=== PATIENT | female | born 1970 | race Caucasian/White ===

== ENCOUNTER 2018-01-04 10:42 | Emergency (ER) | payer OTHER ==
[2018-01-04 11:22] LABS: RAPID GROUP A STREP NEGATIVE (NEGATIVE)
== END 2018-01-04 11:51 | disposition home or self-care (01) ==
LOC: EDH 10:42
DX: J10.1 Influenza due to other identified influenza virus with other respiratory manifestations (principal)
CPT/HCPCS: 87804; 87880

== ENCOUNTER 2018-02-19 20:35 | Emergency (ER) | payer OTHER ==
[2018-02-19 21:11] LABS: APPEARANCE,URINE Clear (CLEAR); BILIRUBIN,URINE Negative (NEGATIVE); COLOR,URINE Yellow (YELLOW); GLUCOSE, URINE (UA) Negative (NEGATIVE); KETONES,URINE Negative (NEGATIVE); LEUKOCYTE ESTERASE ,URINE Negative (NEGATIVE); NITRATE,URINE Negative (NEGATIVE); OCCULT BLOOD,URINE Negative (NEGATIVE); PROTEIN,URINE Negative (NEGATIVE); UROBILINOGEN,URINE 0.2 mg/dL (0.2-1.0)
[2018-02-19 21:53] LABS: BASOPHILS % (AUTO) 0.9 % (0.0-5.0); EOSINOPHILS % (AUTO) 2.2 % (0.0-8.0); LYMPHOCYTES % (AUTO) 23.3 % (21.0-51.0); MEAN CORPUSCULAR HEMOGLOBIN 34.3 pg (27.0-33.0); MEAN CORPUSCULAR HGB CONC 35.9 g/dL (32.0-36.0); MEAN CORPUSCULAR VOLUME 95.4 fL (79-99); MONOCYTES % (AUTO) 8.1 % (3.0-13.0); NEUTROPHILS % (AUTO) 65.5 % (40.0-77.0); PLATELET COUNT (AUTO) 215 K/uL (130-400); RED BLOOD CELL COUNT(AUTO) 3.98 MIL/uL (4.00-5.50); RED CELL DISTRIBUTION WIDTH 13.2 % (11.0-15.5); WHITE BLOOD COUNT (AUTO) 8.8 K/uL (4.8-10.8)
[2018-02-19 22:02] LABS: CREATININE 0.8 mg/dL (0.5-1.5); POTASSIUM 4.1 mmol/L (3.5-5.1)
[2018-02-19 22:09] LABS: ALBUMIN 3.5 g/dL (3.5-5.0); BILIRUBIN,TOTAL 0.2 mg/dL (0.2-1.0); TOTAL PROTEIN, SERUM 7.3 g/dL (6.0-8.3)
== END 2018-02-19 23:05 | disposition left against medical advice (07) ==
LOC: EDH 20:35
DX: R10.32 Left lower quadrant pain (principal); Z72.0 Tobacco use
CPT/HCPCS: 36415; 80053; 81003; 81025; 82150; 83690; 85025; 93005

== ENCOUNTER 2019-01-06 12:56 | Emergency (ER) | payer OTHER ==
[2019-01-06] MEDS ORDERED: CYCLOBENZAPRINE HCL 10 MG TABLET ONE (13:31)
[2019-01-06] MEDS ORDERED: DIAZEPAM 5 MG TABLET ONE (13:32)
[2019-01-06] MEDS ORDERED: KETOROLAC TROMETHAMINE 60 MG/2 ML VIAL ONE (13:43)
[2019-01-06 13:57] LABS: APPEARANCE,URINE CLEAR (CLEAR); BILIRUBIN,URINE NEGATIVE (NEGATIVE); COLOR,URINE YELLOW (YELLOW); GLUCOSE, URINE (UA) NEGATIVE (NEGATIVE); KETONES,URINE NEGATIVE (NEGATIVE); LEUKOCYTE ESTERASE ,URINE NEGATIVE (NEGATIVE); NITRATE,URINE NEGATIVE (NEGATIVE); OCCULT BLOOD,URINE MODERATE (NEGATIVE); PROTEIN,URINE NEGATIVE (NEGATIVE); UROBILINOGEN,URINE 0.2 mg/dL (0.2-1.0)
[2019-01-06 14:03] LABS: BACTERIA,URINE Rare /HPF (None Seen); RBC,URINE 0-1 /HPF (0-1); SQUAMOUS EPITHELIAL CELL,UR Rare /HPF (0-2); WBC,URINE 0-1 /HPF (0-1)
== END 2019-01-06 16:03 | disposition home or self-care (01) ==
LOC: EDH 12:56
DX: M54.5 Low back pain (principal); Z72.0 Tobacco use
CPT/HCPCS: 74176; 81001; 96372; 99284; J1885

== ENCOUNTER 2019-01-07 00:38 | Emergency (ER) | payer OTHER ==
[2019-01-07] MEDS ORDERED: HYDROMORPHONE 1 MG/1 ML AMP ONE (01:39)
[2019-01-07] MEDS ORDERED: ONDANSETRON ODT 4 MG TAB ONE (01:39)
[2019-01-07] MEDS ORDERED: KETOROLAC TROMETHAMINE 60 MG/2 ML VIAL ONE (01:39)
[2019-01-07] MEDS ORDERED: METHYLPREDNISOLONE SOD SUCC 125MG/2ML VIAL ONE (01:39)
== END 2019-01-07 02:17 | disposition home or self-care (01) ==
LOC: EDH 00:38
DX: M54.5 Low back pain (principal); Z72.0 Tobacco use
CPT/HCPCS: 96372 ×3; 99283; J1170; J1885; J2930

== ENCOUNTER 2022-05-29 14:02 | Emergency (ER) | payer OTHER ==
[~2022-05-29] VITALS: Ht 167.6 cm; Wt 90.7 kg
[2022-05-29] MEDS ORDERED: DiphenhydrAMINE HCL 50 MG/ML VIAL IV ONE (14:30)
[2022-05-29] MEDS ORDERED: SOLU-MEDROL 125MG VIAL IVP ONE (14:30)
[2022-05-29] MEDS ORDERED: FAMOTIDINE 20MG VIAL IV ONE (14:30)
[2022-05-29 14:57] LABS: BASOPHILS % (AUTO) 0.6 % (0.0-5.0); EOSINOPHILS % (AUTO) 1.7 % (0.0-8.0); HEMATOCRIT 47.3 % (36-48); LYMPHOCYTES % (AUTO) 19.2 % (21.0-51.0); MEAN CORPUSCULAR HEMOGLOBIN 33.6 pg (27.0-33.0); MEAN CORPUSCULAR HGB CONC 34.2 g/dL (32.0-36.0); MEAN CORPUSCULAR VOLUME 98.1 fL (79-99); MONOCYTES % (AUTO) 7.5 % (3.0-13.0); NEUTROPHILS % (AUTO) 70.6 % (40.0-77.0); PLATELET COUNT (AUTO) 181 K/uL (130-400); RED BLOOD CELL COUNT(AUTO) 4.82 MIL/uL (4.00-5.50); RED CELL DISTRIBUTION WIDTH 11.4 % (11.0-15.5); WHITE BLOOD COUNT (AUTO) 7.8 K/uL (4.8-10.8)
[2022-05-29 15:18] VITALS: BP 135/66
[2022-05-29] MEDS ORDERED: FAMO-136 PO (15:29)
[2022-05-29] MEDS ORDERED: PRED20TA3 PO (15:29)
[2022-05-29] MEDS ORDERED: CETI1SOL17 PO (15:29)
[2022-05-29 15:45] LABS: CARBON DIOXIDE 25 mmol/L (21-32); CHLORIDE 103 mmol/L (101-111); CREATININE 0.7 mg/dL (0.5-1.5); GLOMERULAR FILTR. RATE CALC 94 mL/min (>60); GLUCOSE,RANDOM 104 mg/dL (70-105); POTASSIUM 3.8 mmol/L (3.5-5.1); SODIUM SERUM 137 mmol/L (136-145); UREA NITROGEN, BLOOD 14 mg/dL (7-18)
[2022-05-29 15:49] LABS: ALANINE AMINOTRANSFERASE 55 U/L (12-78); ALBUMIN 3.7 g/dL (3.5-5.0); ASPARTATE AMINOTRANSFERASE 35 U/L (10-37); TOTAL PROTEIN, SERUM 7.4 g/dL (6.0-8.3)
[2022-05-29 15:52] LABS: CRP QUANTITATIVE < 2.00 mg/L (0.00-9.0)
== END 2022-05-29 15:35 | disposition home or self-care (01) ==
LOC: EDH 14:02
DX: T78.3XXA Angioneurotic edema, initial encounter (principal); Z79.52 Long term (current) use of systemic steroids; X58.XXXA Exposure to other specified factors, initial encounter
CPT/HCPCS: 99284; 96374; 96375; 80053; 85025; 86140; 36415; J1200; J3490; J2930

== ENCOUNTER 2022-12-16 17:05 | Emergency (ER) | payer OTHER ==
[~2022-12-16] VITALS: Ht 167.6 cm; Wt 79.4 kg
[~2022-12-16 17:05] MED LIST: CETI1SOL17 PO; FAMO-136 PO; PRED20TA3 PO
[2022-12-16] MEDS ORDERED: KETOROLAC 30MG VIAL (30MG/ML) IM ONE (19:00)
[2022-12-16] MEDS ORDERED: DIAZEPAM 5 MG/ML 2 ML SYG IM ONE (19:00)
[2022-12-16 19:34] LABS: APPEARANCE,URINE CLEAR (CLEAR); BILIRUBIN,URINE NEGATIVE (NEGATIVE); COLOR,URINE LIGHT-YELLOW (YELLOW); GLUCOSE, URINE (UA) NEGATIVE (NEGATIVE); KETONES,URINE 5 mg/dL (NEGATIVE); LEUKOCYTE ESTERASE ,URINE NEGATIVE Leu/uL (NEGATIVE); NITRATE,URINE NEGATIVE (NEGATIVE); OCCULT BLOOD,URINE MODERATE (NEGATIVE); PROTEIN,URINE NEGATIVE (NEGATIVE); UROBILINOGEN,URINE 0.2 mg/dL (0.2-1.0)
[2022-12-16 19:36] LABS: MUCUS,URINE RARE LPF (None Seen); RBC,URINE 0-1 /HPF (0-1); SQUAMOUS EPITHELIAL CELL,UR RARE /HPF (0-2); WBC,URINE 0-1 /HPF (0-1)
[2022-12-16 19:37] LABS: HCG,QUALITATIVE URINE NEGATIVE (NEGATIVE)
[2022-12-16] MEDS ORDERED: TRAM50TA4 PO (20:34)
[2022-12-16] MEDS ORDERED: CYCL10TA16 PO (20:34)
[2022-12-16 20:40] VITALS: BP 141/61
== END 2022-12-16 20:41 | disposition home or self-care (01) ==
LOC: EDH 17:05
DX: G89.29 Other chronic pain (principal); M54.50 Low back pain, unspecified; Z79.52 Long term (current) use of systemic steroids
CPT/HCPCS: 99285; 72131; 81001; 81025; 96372 ×2; J3360; J1885

== ENCOUNTER 2022-12-19 10:41 | Emergency (ER) | payer BC, OTHER ==
[~2022-12-19] VITALS: Ht 167.6 cm; Wt 79.8 kg
[~2022-12-19 10:41] MED LIST changes: +CYCL10TA16 PO; +TRAM50TA4 PO
[2022-12-19 10:51] VITALS: BP 116/77
== END 2022-12-19 11:56 | disposition left against medical advice (07) ==
LOC: EDH 10:41
DX: M76.02 Gluteal tendinitis, left hip (principal); Z53.21 Procedure and treatment not carried out due to patient leaving prior to being seen by health care provider

== ENCOUNTER 2024-01-25 19:27 | Emergency (ER) | payer OTHER, BC ==
[~2024-01-25] VITALS: Ht 167.6 cm; Wt 77.1 kg
[2024-01-25 19:28] VITALS: BP 137/95; PULSE 90; RESP 20
[2024-01-25 19:55] LABS: APPEARANCE,URINE CLEAR (CLEAR); BILIRUBIN,URINE NEGATIVE (NEGATIVE); COLOR,URINE COLORLESS (YELLOW); GLUCOSE, URINE (UA) NEGATIVE (NEGATIVE); KETONES,URINE NEGATIVE (NEGATIVE); LEUKOCYTE ESTERASE ,URINE NEGATIVE Leu/uL (NEGATIVE); NITRATE,URINE NEGATIVE (NEGATIVE); OCCULT BLOOD,URINE NEGATIVE (NEGATIVE); PROTEIN,URINE NEGATIVE (NEGATIVE); UROBILINOGEN,URINE 0.2 mg/dL (0.2-1.0)
[2024-01-25 19:56] LABS: ADD UA MICROSCOPIC YES; SQUAMOUS EPITHELIAL CELL,UR RARE /HPF (0-2)
[2024-01-25 19:57] LABS: HCG,QUALITATIVE URINE NEGATIVE (NEGATIVE)
== END 2024-01-25 23:33 | disposition left against medical advice (07) ==
LOC: EDH 19:27
DX: R51.9 Headache, unspecified (principal); Z53.21 Procedure and treatment not carried out due to patient leaving prior to being seen by health care provider
CPT/HCPCS: 70450; 81001; 81025; 99281